=== PATIENT | male | born 1970 | race Caucasian/White ===

== ENCOUNTER 2017-09-24 03:54 | Observation (INO) | payer MEDICAID, MEDICARE ==
[2017-09-24 04:02] VITALS: BMI 37.0
--- NOTE | 2017-09-24 04:26 | ED PDOC ---
Arrival/HPI - General Chief Complaint: Chest Pain Time Seen by Provider: 09/24/17 04:01 Historian: Patient - History of Present Illness Narrative History of Present Illness (Text): 09/24/17 04:20 Axel Leija is a 46 year old male, whose past medical history includes asthma, hypertension, and diabetes, who presents to the Emergency department brought in by EMS accompanied by family complaining of chest pain. Patient states he woke up tonight with sharp chest pain with associated shortness of breath. Patient denies any fever, chills, nausea, vomiting, diarrhea, urinary symptoms, back pain, neck pain, headache, dizziness, or any other complaints. PMD: Dr. Barnes Symptom Onset: Gradual Symptom Course: Unchanged Activities at Onset: Light Context: Home Past Medical History - Provider Review Nursing Documentation Reviewed: Yes - Cardiac Hx Hypertension: Yes - Endocrine/Metabolic Hx Diabetes Mellitus Type 2: Yes - Gastrointestinal Hx Gastroesophageal Reflux: Yes - Psychiatric Hx Psychophysiologic Disorder: No Hx Substance Use: No - Surgical History Hx Arthroscopy: Yes (right) Hx Orthopedic Surgery: Yes (ACL) - Anesthesia Hx Anesthesia: Yes Hx Anesthesia Reactions: No Family/Social History - Physician Review Nursing Documentation Reviewed: Yes Family/Social History: Unknown Family HX Smoking Status: Never Smoked Hx Alcohol Use: No Hx Substance Use: No Allergies/Home Meds Allergies/Adverse Reactions: Allergies pacheco Allergy (Uncoded 09/24/17 04:11) VOMITING shellfish Allergy (Uncoded 09/24/17 04:11) SWELLING Review of Systems - Physician Review All systems were reviewed & negative as marked: Yes - Review of Systems Constitutional: Normal. absent: Fevers Eyes: Normal ENT: Normal Respiratory: SOB Cardiovascular: Chest Pain Gastrointestinal: Normal. absent: Abdominal Pain, Diarrhea, Nausea, Vomiting Genitourinary Male: Normal. absent: Dysuria, Frequency, Hematuria, Urinary Output Changes Musculoskeletal: Normal. absent: Back Pain, Neck Pain Skin: Normal. absent: Rash Neurological: Normal. absent: Headache, Dizziness Endocrine: Normal Hemo/Lymphatic: Normal Psychiatric: Normal Physical Exam Vital Signs Reviewed: Yes Vital Signs Pulse Pulse Resp BP Pulse Ox 09/24/17 04:28 90 09/24/17 04:02 90 18 149/94 H 98 Temperature: Afebrile Blood Pressure: Normal Pulse: Regular Respiratory Rate: Normal Appearance: Positive for: Well-Appearing, Non-Toxic, Comfortable Pain Distress: None Mental Status: Positive for: Alert and Oriented X 3 - Systems Exam Head: Present: Atraumatic, Normocephalic Pupils: Present: PERRL Extroacular Muscles: Present: EOMI Conjunctiva: Present: Normal Mouth: Present: Moist Mucous Membranes Neck: Present: Normal Range of Motion. No: Meningeal Signs, MIDLINE TENDERNESS , Paraspinal Tenderness Respiratory/Chest: Present: Clear to Auscultation, Good Air Exchange. No: Respiratory Distress, Accessory Muscle Use Cardiovascular: Present: Regular Rate and Rhythm, Normal S1, S2. No: Murmurs Abdomen: No: Tenderness, Distention, Peritoneal Signs Back: Present: Normal Inspection. No: CVA Tenderness, Midline Tenderness, Paraspinal Tenderness Upper Extremity: Present: Normal Inspection. No: Cyanosis, Edema Lower Extremity: Present: Normal Inspection. No: Edema Neurological: Present: GCS=15, CN II-XII Intact, Speech Normal, Motor Func Grossly Intact, Normal Sensory Function, Normal Cerebellar Funct Skin: Present: Warm, Dry, Normal Color. No: Rashes Psychiatric: Present: Alert, Oriented x 3, Normal Insight, Normal Concentration Medical Decision Making ED Course and Treatment: 09/24/17 04:20 Impression: 46 year old male complaining of sharp chest pain and shortness of breath tonight. Plan: -- EKG -- Chest X-ray -- Labs, cardiac enzymes, BNP, D-dimer -- Aspirin -- Reassess and disposition Progress Notes: Reviewed EKG, NSR at [address]-segment elevations or depressions, no T-wave inversions, normal intervals. 09/24/17 04:52 Chest X-ray reviewed, shows no acute processes. 09/24/17 05:59 09/24/17 06:[address] Barnes, who requests pt go to hospitalist service. Case discussed with Dr. Aurelia Zepeda and spanish medical interpreter filtration supervisor, who will endorse case to oncoming hospitalist. - Lab Interpretations Lab Results: 09/24/17 04:20 09/24/17 04:20 Lab Results 09/24/17 05:48: POC Glucose (mg/dL) 405 H* 09/24/17 04:20: WBC 10.5, RBC 4.85, Hgb 15.0, Hct 41.7 L, MCV 86.0, MCH 30.9, MCHC 36.0, RDW 12.6, Plt Count 284, MPV 10.3 09/24/17 04:20: Sodium 140, Potassium 4.5, Chloride 106, Carbon Dioxide 23, Anion Gap 16, BUN 17, Creatinine 0.9, Est GFR ( Amer) > 60, Est GFR (Non- Af Amer) > 60, Random Glucose 414 H*, Calcium 9.2, Total Bilirubin 0.4, AST 35, ALT 47, Alkaline Phosphatase 66, Lactate Dehydrogenase 506, Total Creatine Kinase 219, Troponin I < 0.01, NT-Pro-B Natriuret Pep < 11.1, Total Protein 7.6 , Albumin 4.2, Globulin 3.3, Albumin/Globulin Ratio 1.3 09/24/17 04:20: PT 10.5, INR 0.92 L, APTT 32.4, D-Dimer, Quantitative < 200 - RAD Interpretation Radiology Orders: 09/24/17 04:07 CHEST PORTABLE [RAD] Stat Mortgage Funder: ED Physician - EKG Interpretation Interpreted by ED Physician: Yes Type: 12 lead EKG - Medication Orders Current Medication Orders: Discontinued Medications Aspirin (Aspirin) 325 mg PO ONCE STA Stop: 09/24/17 04:24 Last Admin: 09/24/17 04:50 Dose: 325 mg Insulin Human Regular (Humulin R) 8 units SC STAT STA Stop: 09/24/17 05:47 Last Admin: 09/24/17 06:01 Dose: 8 u MAR Blood Glucose Document 09/24/17 06:01 IT (Rec: 09/24/17 06:01 IT [id number]) Blood Glucose Finger Stick Blood Glucose (70-120) 402 Subcutaneous Administrations Document 09/24/17 06:01 IT (Rec: 09/24/17 06:01 IT [id number]) Injection Site MAR Injection Site Left Deltoid Charges for Administration # of Subcutaneous Administrations 1 - Scribe Statement The provider has reviewed the documentation as recorded by the Scribjun [place] All medical record entries made by the Scribe were at my direction and personally dictated by me. I have reviewed the chart and agree that the record accurately reflects my personal performance of the history, physical exam, medical decision making, and the department course for this patient. I have also personally directed, reviewed, and agree with the discharge instructions and disposition. Disposition/Present on Arrival - Present on Arrival Any Indicators Present on Arrival: No History of DVT/PE: No History of Uncontrolled Diabetes: No Urinary Catheter: No History of Decub. Ulcer: No History Surgical Site Infection Following: None - Disposition Have Diagnosis and Disposition been Completed?: Yes Diagnosis: Chest pain Disposition: HOSPITALIZED Disposition Time: 06:11 Condition: STABLE Discharge Instructions (ExitCare): Chest Pain (ED) Forms: [email or web address] (Telugu)
[2017-09-24 04:28] LABS: MEAN CORPUSCULAR HEMOGLOBIN 30.9 pg (25.0-35.0); MEAN PLATELET VOLUME 10.3 fl (7.0-11.0); RBC 4.85 10^6/uL (3.5-6.1); RED CELL DISTRIBUTION WIDTH 12.6 % (11.5-14.5); WHITE BLOOD COUNT 10.5 10^3/ul (4.5-11.0)
[2017-09-24 04:48] LABS: D DIMER < 200 ng/mL (0-243); INR 0.92 (0.93-1.08); PARTIAL THROMBOPLASTIN TIME 32.4 Seconds (25.1-36.5); PROTHROMBIN TIME 10.5 SECONDS (9.4-12.5)
[2017-09-24 04:49] LABS: TROPONIN I < 0.01 ng/mL
[2017-09-24 04:57] LABS: ALB/GLOB RATIO 1.3 (1.1-1.8); ALBUMIN 4.2 g/dL (3.0-4.8); ALT/SGPT 47 U/L (7-56); AST/SGOT 35 U/L (17-59); B-TYPE NATRIURETIC PEPTIDE < 11.1 pg/mL (0-450); BLOOD UREA NITROGEN 17 mg/dL (7-21); CALCIUM 9.2 mg/dL (8.4-10.5); GFR AFRICAN-AMERICAN > 60; GFR NON-AFRICAN AMERICAN > 60
[2017-09-24] MEDS ORDERED: Insulin Regular 1 UNITS/0.01 ML ML SC STA ×2 (05:44→05:46)
[2017-09-24 07:53] LABS: HDL CHOLESTEROL 39 mg/dL (29-60)
[2017-09-24 08:03] LABS: LDL CHOLESTEROL 77 mg/dL (0-129)
--- NOTE | 2017-09-24 08:07 | RAD ---
Date of service: 09/24/2017 HISTORY: fever COMPARISON: No prior. FINDINGS: LUNGS: No active pulmonary disease. PLEURA: No significant pleural effusion identified, no pneumothorax apparent. CARDIOVASCULAR: Normal. OSSEOUS STRUCTURES: No significant abnormalities. VISUALIZED UPPER ABDOMEN: Normal. OTHER FINDINGS: None. IMPRESSION: No active disease.
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
[2017-09-24] MEDS: Insulin Reg-HIGH-Coverage SC SCH ×4 (08:44→22:33)
[2017-09-24] MEDS: Enoxaparin 40 mg Syringe SC SCH (10:08)
[2017-09-24] MEDS: Insulin Lispro (humaLOG) MIX 75/25(10 ml) SC SCH (10:15)
--- NOTE | 2017-09-24 12:55 | CT ---
Date of service: 09/24/2017 PROCEDURE: CT HEAD WITHOUT CONTRAST. HISTORY: numbness and tingling in left extremity COMPARISON: None available. TECHNIQUE: Axial computed tomography images were obtained through the head/brain without intravenous contrast. Radiation dose: Total exam DLP = 919 mGy-cm. This CT exam was performed using one or more of the following dose reduction techniques: Automated exposure control, adjustment of the mA and/or kV according to patient size, and/or use of iterative reconstruction technique. FINDINGS: HEMORRHAGE: No intracranial hemorrhage. BRAIN: No mass effect or edema. No atrophy or chronic microvascular ischemic changes. VENTRICLES: Unremarkable. No hydrocephalus. CALVARIUM: Unremarkable. PARANASAL SINUSES: Unremarkable as visualized. No significant inflammatory changes. MASTOID AIR CELLS: Unremarkable as visualized. No inflammatory changes. OTHER FINDINGS: None. IMPRESSION: No acute findings
[2017-09-24] MEDS ORDERED: Insulin Lispro (humaLOG) MIX 75/25(10 ml) SC SCH (16:30)
--- NOTE | 2017-09-24 19:47 | CARD ---
APPROVED REPORT Date of service: 09/24/2017 EKG Measurement Heart [id number] <Conclusion> Normal sinus rhythm Normal ECG
--- NOTE | 2017-09-24 22:12 | CARD ---
APPROVED REPORT Date of service: 09/24/2017 EKG Measurement Heart [id number] <Conclusion> Normal sinus rhythm Normal ECG
[2017-09-25] MEDS ORDERED: Pantoprazole 40 mg EC Tab PO SCH (06:00)
--- NOTE | 2017-09-25 06:55 | CP.PCM.DIS ---
<Koko Aguilar - Last Filed: 09/25/17 15:34> Provider - Provider Date of Admission: 09/24/17 06:05 Attending physician: Nikole Foote MD Primary care physician: Shabana Barnes MD Hospital Course - Lab Results Lab Results: Most Recent Lab Values WBC 10.5 10^3/ul (4.5-11.0) 09/24/17 04:20 RBC 4.85 10^6/uL (3.5-6.1) 09/24/17 04:20 Hgb 15.0 g/dL (14.0-18.0) 09/24/17 04:20 Hct 41.7 % (42.0-52.0) L 09/24/17 04:20 MCV 86.0 fl (80.0-105.0) 09/24/17 04:20 MCH 30.9 pg (25.0-35.0) 09/24/17 04:20 MCHC 36.0 g/dl (31.0-37.0) 09/24/17 04:20 RDW 12.6 % (11.5-14.5) 09/24/17 04:20 Plt Count 284 10^3/uL (120.0-450.0) 09/24/17 04:20 MPV 10.3 fl (7.0-11.0) 09/24/17 04:20 PT 10.5 SECONDS (9.4-12.5) 09/24/17 04:20 INR 0.92 (0.93-1.08) L 09/24/17 04:20 APTT 32.4 Seconds (25.1-36.5) 09/24/17 04:20 D-Dimer, Quantitative < 200 ng/mL (0-243) 09/24/17 04:20 Sodium 140 mmol/L (132-148) 09/24/17 04:20 Potassium 4.5 mmol/L (3.6-5.0) 09/24/17 04:20 Chloride 106 mmol/L (98-107) 09/24/17 04:20 Carbon Dioxide 23 mmol/L (21-33) 09/24/17 04:20 Anion Gap 16 (10-20) 09/24/17 04:20 BUN 17 mg/dL (7-21) 09/24/17 04:20 Creatinine 0.9 mg/dl (0.8-1.5) 09/24/17 04:20 Est GFR ( Amer) > 60 09/24/17 04:20 Est GFR (Non-Af Amer) > 60 09/24/17 04:20 POC Glucose (mg/dL) 178 mg/dL (65-110) H 09/25/17 07:45 Random Glucose 414 mg/dL (70-110) H* 09/24/17 04:20 Hemoglobin A1c 9.2 % (4.2-6.5) H 09/24/17 04:20 Calcium 9.2 mg/dL (8.4-10.5) 09/24/17 04:20 Total Bilirubin 0.4 mg/dL (0.2-1.3) 09/24/17 04:20 AST 35 U/L (17-59) 09/24/17 04:20 ALT 47 U/L (7-56) 09/24/17 04:20 Alkaline Phosphatase 66 U/L (38-126) 09/24/17 04:20 Lactate Dehydrogenase 506 U/L (333-699) 09/24/17 04:20 Total Creatine Kinase 219 U/L (35-230) 09/24/17 04:20 Troponin I < 0.01 ng/mL 09/24/17 15:47 NT-Pro-B Natriuret Pep < 11.1 pg/mL (0-450) 09/24/17 04:20 Total Protein 7.6 g/dL (5.8-8.3) 09/24/17 04:20 Albumin 4.2 g/dL (3.0-4.8) 09/24/17 04:20 Globulin 3.3 gm/dL 09/24/17 04:20 Albumin/Globulin Ratio 1.3 (1.1-1.8) 09/24/17 04:20 Triglycerides 273 mg/dL (35-160) H 09/24/17 04:20 Cholesterol 145 mg/dL (130-200) 09/24/17 04:20 LDL Cholesterol Direct 77 mg/dL (0-129) 09/24/17 04:20 HDL Cholesterol 39 mg/dL (29-60) 09/24/17 04:20 Discharge Plan - Discharge Medications Prescriptions: amLODIPine [Norvasc] 10 mg PO DAILY #14 tab Aspirin [Aspirin Chewable] 81 mg PO DAILY #14 chew Atorvastatin [Lipitor] 20 mg PO DAILY #14 tab Lisinopril [Zestril] 20 mg PO DAILY #14 tab MetFORMIN [glucoPHAGE] 1,000 mg PO BID #28 tab - Follow Up Plan Condition: STABLE Disposition: HOME/ ROUTINE Instructions: Cardiac Stress Test, Chest Pain (DC), Hypertension (DC) Additional Instructions: 1.Please follow up with your PMD Dr. Barnes within 3-5 business days regarding this admission 2.Please remember to go perform your nuclear stress test within 2 weeks w/ Dr. Arias - Materials Specialist 3.As discussed, medication compliance is really important for control of your health, especially diabetes medications. Please begin setting alarms as a reminder to take your medications 4.Your lisinopril dosage was increased from 10 mg to 20 mg and you're now taking amlodipine 10 mg per day. You will also be started on a low-dose statin for cholesterol. Please take as prescribed. 5.Please continue with low carbohydrate diet; Ask your PMD for a referral to a chief station engineer if you need help with your diet. 6.If symptoms recur please go to your nearest emergency department for further evaluation. Referrals: Shabana Barnes MD [Primary Care Provider] - Sergei Arias MD [Staff Provider] - <Aarti Bernal - Last Filed: 09/25/17 15:42> Provider - Provider Date of Admission: 09/24/17 06:05 Attending physician: Nikole Foote MD Primary care physician: Shabana Barnes MD Consults: Cardiology Time Spent in preparation of Discharge (in minutes): 40 Diagnosis - Discharge Diagnosis (1) Chest pain Status: Acute Priority: High (2) Left arm weakness Status: Acute Priority: High (3) Diabetes mellitus with neuropathy Status: Chronic Priority: High (4) HTN (hypertension) Status: Chronic Priority: Medium (5) HLD (hyperlipidemia) Status: Chronic Priority: Low (6) GERD (gastroesophageal reflux disease) Status: Chronic Priority: Low Hospital Course - Lab Results Lab Results: Most Recent Lab Values WBC 10.5 10^3/ul (4.5-11.0) 09/24/17 04:20 RBC 4.85 10^6/uL (3.5-6.1) 09/24/17 04:20 Hgb 15.0 g/dL (14.0-18.0) 09/24/17 04:20 Hct 41.7 % (42.0-52.0) L 09/24/17 04:20 MCV 86.0 fl (80.0-105.0) 09/24/17 04:20 MCH 30.9 pg (25.0-35.0) 09/24/17 04:20 MCHC 36.0 g/dl (31.0-37.0) 09/24/17 04:20 RDW 12.6 % (11.5-14.5) 09/24/17 04:20 Plt Count 284 10^3/uL (120.0-450.0) 09/24/17 04:20 MPV 10.3 fl (7.0-11.0) 09/24/17 04:20 PT 10.5 SECONDS (9.4-12.5) 09/24/17 04:20 INR 0.92 (0.93-1.08) L 09/24/17 04:20 APTT 32.4 Seconds (25.1-36.5) 09/24/17 04:20 D-Dimer, Quantitative < 200 ng/mL (0-243) 09/24/17 04:20 Sodium 140 mmol/L (132-148) 09/24/17 04:20 Potassium 4.5 mmol/L (3.6-5.0) 09/24/17 04:20 Chloride 106 mmol/L (98-107) 09/24/17 04:20 Carbon Dioxide 23 mmol/L (21-33) 09/24/17 04:20 Anion Gap 16 (10-20) 09/24/17 04:20 BUN 17 mg/dL (7-21) 09/24/17 04:20 Creatinine 0.9 mg/dl (0.8-1.5) 09/24/17 04:20 Est GFR ( Amer) > 60 09/24/17 04:20 Est GFR (Non-Af Amer) > 60 09/24/17 04:20 POC Glucose (mg/dL) 186 mg/dL (65-110) H 09/24/17 21:06 Random Glucose 414 mg/dL (70-110) H* 09/24/17 04:20 Hemoglobin A1c 9.2 % (4.2-6.5) H 09/24/17 04:20 Calcium 9.2 mg/dL (8.4-10.5) 09/24/17 04:20 Total Bilirubin 0.4 mg/dL (0.2-1.3) 09/24/17 04:20 AST 35 U/L (17-59) 09/24/17 04:20 ALT 47 U/L (7-56) 09/24/17 04:20 Alkaline Phosphatase 66 U/L (38-126) 09/24/17 04:20 Lactate Dehydrogenase 506 U/L (333-699) 09/24/17 04:20 Total Creatine Kinase 219 U/L (35-230) 09/24/17 04:20 Troponin I < 0.01 ng/mL 09/24/17 15:47 NT-Pro-B Natriuret Pep < 11.1 pg/mL (0-450) 09/24/17 04:20 Total Protein 7.6 g/dL (5.8-8.3) 09/24/17 04:20 Albumin 4.2 g/dL (3.0-4.8) 09/24/17 04:20 Globulin 3.3 gm/dL 09/24/17 04:20 Albumin/Globulin Ratio 1.3 (1.1-1.8) 09/24/17 04:20 Triglycerides 273 mg/dL (35-160) H 09/24/17 04:20 Cholesterol 145 mg/dL (130-200) 09/24/17 04:20 LDL Cholesterol Direct 77 mg/dL (0-129) 09/24/17 04:20 HDL Cholesterol 39 mg/dL (29-60) 09/24/17 04:20 - Hospital Course Hospital Course: Rashid Decker, Medical Student, 3rd yr. AARTI BERNAL DO - PGY1 IM [employer]ODUCT SAFETY PROFESSIONAL - DISCHARGE NOTE Patient is a 46 year old male with a past medical history of DM2, hypertension, hyperlipidemia, and GERD who presented to the ED for chest pain and was admitted for chest pain ACS rule out. On 09/24 the patient woke up at 0315 with 10/10 sharp central chest pain with associated numbness and weakness in his left arm. Other symptoms included shortness of breath and nausea. Patient chewed two baby aspirin at onset of the pain and immediately presented to the ED. While in the ED the chest pain and arm weakness resolved. While in the ED an ECG showed normal sinus, a chest XR was negative, and troponins were negative. He reports two similar bouts of chest pain approximately 10 years ago that resulted in a negative cardiac work up including negative cardiac cath x 2. Plan is to discharge patient with instruction for outpatient stress test. In regards to his hypertension, patient will continue with Lisinopril 20 mg QD and Amlodipine 10 mg QD. The patient also complained of left arm weakness. A head CT was ordered showing no evidence of CVA or other acute intracranial pathology. Patient is unsure whether the left arm numbness was present prior to his chest pain. It may be secondary to his untreated left rotator cuff tear. Instructed to follow up with his PCP for his left shoulder injury. The patient has uncontrolled diabetes. A1C on admission is 9.2. Educated patient on proper and consistent use of his Humalog and insulin. Discussed appropriate low carb diet and exercise. Patient has elevated triglycerides (273). Will discharge with statin prescription. All questions were answered and the patient agrees with this plan. - Date & Time of H&P Date of H&P: 09/24/17 Time of H&P: 07:45 Discharge Exam - Head Exam Head Exam: ATRAUMATIC, NORMOCEPHALIC - Eye Exam Eye Exam: EOMI, Normal appearance, PERRL - Respiratory Exam Respiratory Exam: Clear to PA & Lateral, NORMAL BREATHING PATTERN, UNREMARKABLE - Cardiovascular Exam Cardiovascular Exam: REGULAR RHYTHM, +S1, +S2 - GI/Abdominal Exam GI & Abdominal Exam: Unremarkable - Extremities Exam Additional comments: no calf tenderness - Neurological Exam Neurological exam: Alert, CN II-XII Intact, Oriented x3 Additional comments: 5/5 strength in bilateral upper and lower extremities. Mild decreased sensation to light touch in left arm when compared to the right. - Psychiatric Exam Psychiatric exam: Normal Affect, Normal Mood - Skin Skin Exam: Dry, Normal Color, Warm <Olivier Mckeon - Last Filed: 09/26/17 10:42> Provider - Provider Date of Admission: 09/24/17 06:05 Attending physician: Nikole Foote MD Primary care physician: Shabana Barnes MD Hospital Course - Lab Results Lab Results: Most Recent Lab Values WBC 10.5 10^3/ul (4.5-11.0) 09/24/17 04:20 RBC 4.85 10^6/uL (3.5-6.1) 09/24/17 04:20 Hgb 15.0 g/dL (14.0-18.0) 09/24/17 04:20 Hct 41.7 % (42.0-52.0) L 09/24/17 04:20 MCV 86.0 fl (80.0-105.0) 09/24/17 04:20 MCH 30.9 pg (25.0-35.0) 09/24/17 04:20 MCHC 36.0 g/dl (31.0-37.0) 09/24/17 04:20 RDW 12.6 % (11.5-14.5) 09/24/17 04:20 Plt Count 284 10^3/uL (120.0-450.0) 09/24/17 04:20 MPV 10.3 fl (7.0-11.0) 09/24/17 04:20 PT 10.5 SECONDS (9.4-12.5) 09/24/17 04:20 INR 0.92 (0.93-1.08) L 09/24/17 04:20 APTT 32.4 Seconds (25.1-36.5) 09/24/17 04:20 D-Dimer, Quantitative < 200 ng/mL (0-243) 09/24/17 04:20 Sodium 140 mmol/L (132-148) 09/24/17 04:20 Potassium 4.5 mmol/L (3.6-5.0) 09/24/17 04:20 Chloride 106 mmol/L (98-107) 09/24/17 04:20 Carbon Dioxide 23 mmol/L (21-33) 09/24/17 04:20 Anion Gap 16 (10-20) 09/24/17 04:20 BUN 17 mg/dL (7-21) 09/24/17 04:20 Creatinine 0.9 mg/dl (0.8-1.5) 09/24/17 04:20 Est GFR ( Amer) > 60 09/24/17 04:20 Est GFR (Non-Af Amer) > 60 09/24/17 04:20 POC Glucose (mg/dL) 228 mg/dL (65-110) H 09/25/17 16:19 Random Glucose 414 mg/dL (70-110) H* 09/24/17 04:20 Hemoglobin A1c 9.2 % (4.2-6.5) H 09/24/17 04:20 Calcium 9.2 mg/dL (8.4-10.5) 09/24/17 04:20 Total Bilirubin 0.4 mg/dL (0.2-1.3) 09/24/17 04:20 AST 35 U/L (17-59) 09/24/17 04:20 ALT 47 U/L (7-56) 09/24/17 04:20 Alkaline Phosphatase 66 U/L (38-126) 09/24/17 04:20 Lactate Dehydrogenase 506 U/L (333-699) 09/24/17 04:20 Total Creatine Kinase 219 U/L (35-230) 09/24/17 04:20 Troponin I < 0.01 ng/mL 09/24/17 15:47 NT-Pro-B Natriuret Pep < 11.1 pg/mL (0-450) 09/24/17 04:20 Total Protein 7.6 g/dL (5.8-8.3) 09/24/17 04:20 Albumin 4.2 g/dL (3.0-4.8) 09/24/17 04:20 Globulin 3.3 gm/dL 09/24/17 04:20 Albumin/Globulin Ratio 1.3 (1.1-1.8) 09/24/17 04:20 Triglycerides 273 mg/dL (35-160) H 09/24/17 04:20 Cholesterol 145 mg/dL (130-200) 09/24/17 04:20 LDL Cholesterol Direct 77 mg/dL (0-129) 09/24/17 04:20 HDL Cholesterol 39 mg/dL (29-60) 09/24/17 04:20 Attending/Attestation - Attestation I have personally seen and examined this patient.: Yes I have fully participated in the care of the patient.: Yes I have reviewed all pertinent clinical information, including history, physical exam and plan: Yes Notes (Text): 09/26/17 10:40 Medical record note made by the resident after discussion with my direction and input after the patient was personally seen and examined by me. I have reviewed the chart and agree that the record accurately reflects by personal performance of the history, physical exam, data review, and medical decision-making, in the course for the patient. I have also personally directed the plan of care. 46 yrs old male with PMH of IRDM,HTN,Obesity and non compliance was admitted with atypical chest pain.EKG was negative for ischemic changes. He was monitored in telemetry.Serial troponins were normal.He was evaluated by cardiology and out patient stress test is recommended. Patient is pain free and is ambulatory at the time of discharge.There is no focal deficit. The issue of compliance with medication was discussed in detail. Management plan was discussed in detail with patient. Education was provided.
[2017-09-25 08:35] VITALS: PULSE 80; RESP 20; TEMP 97.7; O2SAT 97
[2017-09-25] MEDS: Insulin Lispro (humaLOG) MIX 75/25(10 ml) SC SCH (09:26)
[2017-09-25] MEDS: Insulin Reg-HIGH-Coverage SC SCH ×2 (09:27→12:14)
[2017-09-25] MEDS: Enoxaparin 40 mg Syringe SC SCH (09:30)
[2017-09-25 09:33] VITALS: BP 120/68
--- NOTE | 2017-09-25 10:00 | CARD ---
APPROVED REPORT Date of service: 09/25/2017 EKG Measurement Heart [id number] <Conclusion> Normal sinus rhythm Normal ECG
== END 2017-09-25 17:13 | disposition home or self-care (01) ==
LOC: ED 03:54 → ERH 06:05 → 3RSO 07:30
PROVIDERS: ADMIT Internal Medicine; ATTEND Internal Medicine
DX: R07.89 Other chest pain (principal); R53.1 Weakness; E11.40 Type 2 diabetes mellitus with diabetic neuropathy, unspecified; I10 Essential (primary) hypertension; E78.5 Hyperlipidemia, unspecified; K21.9 Gastro-esophageal reflux disease without esophagitis; E11.65 Type 2 diabetes mellitus with hyperglycemia; E78.1 Pure hyperglyceridemia; J45.909 Unspecified asthma, uncomplicated; M75.102 Unspecified rotator cuff tear or rupture of left shoulder, not specified as traumatic; Z79.899 Other long term (current) drug therapy; Z83.3 Family history of diabetes mellitus; Z87.11 Personal history of peptic ulcer disease; Z91.19 Patient's noncompliance with other medical treatment and regimen; E66.9 Obesity, unspecified; Z68.37 Body mass index [BMI] 37.0-37.9, adult; Z91.013 Allergy to seafood; Z91.018 Allergy to other foods; R40.2412 Glasgow coma scale score 13-15, at arrival to emergency department
CPT/HCPCS: 70450; 71045; 80053; 80061; 82550; 82948; 83036; 83615; 83880; 84484; 85027; 85378; 85610; 85730; 93005; 96372; 97116; 97161; 99285; G0378; G8978; G8979; G8980; J1650